=== PATIENT | male | born 1970 | race Caucasian/White ===

== ENCOUNTER 2021-08-15 17:41 | Emergency (ER) | payer SELFPAY ==
[2021-08-15 17:46] VITALS: BP 190/106
[2021-08-15] MEDS ORDERED: ONDANSETRON 4 MG ODT TAB PO ONE (18:17)
[2021-08-15] MEDS ORDERED: HYDROmorphone 2 MG/1 ML INJ IM ONE (18:17)
--- NOTE | 2021-08-15 18:22 | Emergency Department Report ---
ED General Adult HPI - General Chief complaint: Pain General Stated complaint: PAIN DUE TO CANCER Time Seen by Provider: 08/15/21 18:13 Source: patient Mode of arrival: Ambulatory Limitations: No Limitations - History of Present Illness Initial comments: This very pleasant 50-year-old male with past medical history of terminal multiple myeloma who presents the emergency department chief complaint of acute pain. Patient reports he is from [facility] and is down here due to a of his grandmother and the legal proceedings took longer than expected and he did not bring enough of his pain medication. He normally takes hydrocodone 10/325 mg every 4 hours but is out of medication and having severe pain. He reports that is a side effect of one of the chemotherapy agents he has severe peripheral neuropathy and is having pain in the bilateral feet and legs as well his back and sides. His is with him at the bedside and states he has been given 3 months to live. Severity scale (0 -10): 10 - Related Data Previous Rx's Medication Instructions Recorded Last Taken Type HYDROcodone/APAP 10-325 [[place] 1 each PO Q4HR #24 tablet 08/15/21 Unknown Rx 10-325 mg TAB] Allergies Allergy/AdvReac Type Severity Reaction Status Date / Time ketorolac [From Toradol] Allergy Anaphylaxis Verified 08/15/21 17:47 ED Review of Systems ROS: Stated complaint: PAIN DUE TO CANCER Other details as noted in HPI Comment: All other systems reviewed and negative Constitutional: denies: chills, fever Eyes: denies: eye pain, eye discharge, vision change ENT: denies: ear pain, throat pain Respiratory: denies: cough, shortness of breath, wheezing Cardiovascular: denies: chest pain, palpitations Endocrine: no symptoms reported Gastrointestinal: denies: abdominal pain, nausea, diarrhea Genitourinary: denies: urgency, dysuria Musculoskeletal: as per HPI, back pain, arthralgia. denies: joint swelling Skin: denies: rash, lesions Neurological: denies: headache, weakness, paresthesias Psychiatric: denies: anxiety, depression Hematological/Lymphatic: denies: easy bleeding, easy bruising ED Past Medical Hx - Medications Home Medications: Home Medications Medication Instructions Recorded Confirmed Last Taken Type HYDROcodone/APAP 10-325 [[place] 1 each PO Q4HR #24 tablet 08/15/21 Unknown Rx 10-325 mg TAB] ED Physical Exam - General Limitations: No Limitations General appearance: alert, in no apparent distress - Head Head exam: Present: atraumatic, normocephalic - Eye Eye exam: Present: normal appearance, PERRL, EOMI Pupils: Present: normal accommodation - ENT ENT exam: Present: normal exam, normal orophraynx, mucous membranes moist - Neck Neck exam: Present: normal inspection, full ROM. Absent: tenderness, meningismus - Respiratory Respiratory exam: Present: normal lung sounds bilaterally. Absent: respiratory distress, wheezes, rales, rhonchi, stridor - Cardiovascular Cardiovascular Exam: Present: regular rate, normal rhythm, normal heart sounds. Absent: systolic murmur, diastolic murmur, rubs, gallop - GI/Abdominal GI/Abdominal exam: Present: soft, normal bowel sounds. Absent: distended, guarding, rebound, rigid - Rectal Rectal exam: Present: deferred - Extremities Exam Extremities exam: Present: normal inspection - Back Exam Back exam: Present: normal inspection - Neurological Exam Neurological exam: Present: alert, oriented X3 - Psychiatric Psychiatric exam: Present: normal affect, normal mood - Skin Skin exam: Present: warm, dry, intact, normal color. Absent: rash ED Course Vital Signs 08/15/21 17:45 Temperature 98.1 F Pulse Rate 105 H Respiratory 18 Rate Blood Pressure 190/106 [Right] O2 Sat by Pulse 100 Oximetry ED Medical Decision Making - Medical Decision Making Patient nontoxic no acute distress. Vital signs relatively stable other than a slightly elevated heart rate. Patient does appear to be in acute pain. I will give him an injection of IM pain medication and oral nausea medication and discharge him with his hydrocodone. I did discuss with the attending physician who was agreeable this plan. Patient was agreeable this plan. I did offer a work-up including labs and possibly imaging however the patient and politely declined stating that they would prefer just some pain relief and follow-up with her doctor back in [place]. - Differential Diagnosis Cancer pain, fracture, bone infarction Critical care attestation.: If time is entered above; I have spent that time in minutes in the direct care of this critically ill patient, excluding procedure time. ED Disposition Clinical Impression: Cancer associated pain Disposition: HOME / SELF CARE / HOMELESS Is pt being admited?: No Condition: Stable Instructions: Acute Pain, Adult Prescriptions: HYDROcodone/APAP 10-325 [[place] 10-325 mg TAB] 1 each PO Q4HR #24 tablet Referrals: PRIMARY CARE, [Referring] - 3-5 Days Time of Disposition: 18:21
== END 2021-08-15 18:40 | disposition home or self-care (01) ==
LOC: ED 17:41
DX: G89.3 Neoplasm related pain (acute) (chronic) (principal); Z88.5 Allergy status to narcotic agent; Z79.899 Other long term (current) drug therapy
CPT/HCPCS: 96372; 99282; J1170; J3490; Q0162

== ENCOUNTER 2021-09-04 17:04 | Emergency (ER) | payer SELFPAY ==
[2021-09-04 17:13] VITALS: BP 156/105
[2021-09-04] MEDS ORDERED: HYDROcodone/ACETAMINOPHEN 10-325MG TAB PO ONE (17:48)
[2021-09-04 18:22] LABS: Basophils # (Auto) 0.1 K/mm3 (0.0-0.1); Basophils % (Auto) 0.7 % (0.0-1.8); Eosinophils # (Auto) 0.1 K/mm3 (0.0-0.4); Eosinophils % (Auto) 1.2 % (0.0-4.3); Hematocrit 45.9 % (35.5-45.6); Hemoglobin 14.9 gm/dl (11.8-15.2); Lymphocytes # (Auto) 2.7 K/mm3 (1.2-5.4); Lymphocytes % (Auto) 25.7 % (13.4-35.0); Mean Corpuscular HGB Conc 33 % (32-34); Mean Corpuscular Volume 85 fl (84-94); Monocytes # (Auto) 0.6 K/mm3 (0.0-0.8); Monocytes % (Auto) 5.4 % (0.0-7.3); Platelet Count 303 K/mm3 (140-440); Red Blood Count 5.43 M/mm3 (3.65-5.03); Red Cell Distribution Width 14.2 % (13.2-15.2)
[2021-09-04 18:37] LABS: Alanine Aminotransferase 36 units/L (7-56); Albumin 4.2 g/dL (3.9-5); Blood Urea Nitrogen 9 mg/dL (9-20); Calcium 9.6 mg/dL (8.4-10.2); Hemolysis Index 13
[2021-09-04 18:38] LABS: BUN/Creatinine Ratio 15
--- NOTE | 2021-09-04 18:45 | Emergency Department Report ---
ED General Adult HPI - General Chief complaint: Pain General Stated complaint: PAIN FROM TERMINAL CA/MED REFILL Time Seen by Provider: 09/04/21 17:38 Source: patient Mode of arrival: Ambulatory Limitations: No Limitations - History of Present Illness Initial comments: Patient is a 50-year-old male presents emergency room due to chronic pain from his terminal cancer. Patient's states that he has multiple myeloma and he was given 2 months to live. states that they traveled here for a . states that she then got injured and had to be sent to [facility] for a surgical procedure and that is why they have not returned yet. She states that they are planning to go back to their home town on 09/07/21. She reports he is out of his glipizide 10 mg, Caro 10 2 tablets every 4 hours, Soma 350 twice daily. He states that he does has pain all over. He denies any fever, vomiting, diarrhea, cough, chest pain, shortness of breath. Allergy to Toradol. Severity scale (0 -10): 10 - Related Data Previous Rx's Medication Instructions Recorded Last Taken Type Carisoprodol [Soma] 350 mg PO BID #8 tablet 09/04/21 Unknown Rx HYDROcodone/APAP 10-325 [[place] 1 each PO Q4HR #24 tablet 09/04/21 Unknown Rx 10-325 mg TAB] glipiZIDE [Glucotrol] 10 mg PO DAILY #30 tab 09/04/21 Unknown Rx Allergies Allergy/AdvReac Type Severity Reaction Status Date / Time ketorolac [From Toradol] Allergy Anaphylaxis Verified 08/15/21 17:47 ED Review of Systems ROS: Stated complaint: PAIN FROM TERMINAL CA/MED REFILL Other details as noted in HPI Comment: All other systems reviewed and negative ED Past Medical Hx - Past Medical History Hx Hypertension: Yes Hx Diabetes: Yes Hx of Cancer: Yes (multiple myeloma bone ca) - Medications Home Medications: Home Medications Medication Instructions Recorded Confirmed Last Taken Type Carisoprodol [Soma] 350 mg PO BID #8 tablet 09/04/21 Unknown Rx HYDROcodone/APAP 10-325 [[place] 1 each PO Q4HR #24 tablet 09/04/21 Unknown Rx 10-325 mg TAB] glipiZIDE [Glucotrol] 10 mg PO DAILY #30 tab 09/04/21 Unknown Rx ED Physical Exam - General Limitations: No Limitations General appearance: alert, in no apparent distress - Head Head exam: Present: atraumatic, normocephalic - Eye Eye exam: Present: normal appearance - ENT ENT exam: Present: mucous membranes moist - Respiratory Respiratory exam: Present: normal lung sounds bilaterally. Absent: respiratory distress, wheezes, rales, rhonchi, stridor, chest wall tenderness, accessory muscle use, decreased breath sounds, prolonged expiratory - Cardiovascular Cardiovascular Exam: Present: regular rate, normal rhythm, normal heart sounds. Absent: systolic murmur, diastolic murmur, rubs, gallop - Neurological Exam Neurological exam: Present: alert, oriented X3 - Psychiatric Psychiatric exam: Present: normal affect, normal mood - Skin Skin exam: Present: warm, dry, intact ED Course Vital Signs 09/04/21 09/04/21 09/04/21 17:07 18:30 19:32 Temperature 98.7 F Pulse Rate 95 H 92 H Respiratory 16 15 20 Rate Blood Pressure 156/105 O2 Sat by Pulse 97 97 Oximetry ED Medical Decision Making - Lab Data Result diagrams: 09/04/21 17:54 09/04/21 17:54 Lab Results 09/04/21 09/04/21 Range/Units 17:54 17:54 WBC 10.4 (4.5-11.0) K/mm3 RBC 5.43 H (3.65-5.03) M/mm3 Hgb 14.9 (11.8-15.2) gm/dl Hct 45.9 H (35.5-45.6) % MCV 85 (84-94) fl MCH 28 (28-32) pg MCHC 33 (32-34) % RDW 14.2 (13.2-15.2) % Plt Count 303 (140-440) K/mm3 Lymph % (Auto) 25.7 (13.4-35.0) % [place] % (Auto) 5.4 (0.0-7.3) % Eos % (Auto) 1.2 (0.0-4.3) % Baso % (Auto) 0.7 (0.0-1.8) % Lymph # (Auto) 2.7 (1.2-5.4) K/mm3 [place] # (Auto) 0.6 (0.0-0.8) K/mm3 Eos # (Auto) 0.1 (0.0-0.4) K/mm3 Baso # (Auto) 0.1 (0.0-0.1) K/mm3 Seg Neutrophils % 67.0 (40.0-70.0) % Seg Neutrophils # 7.0 (1.8-7.7) K/mm3 Sodium 138 (137-145) mmol/L Potassium 3.8 (3.6-5.0) mmol/L Chloride 99.1 (98-107) mmol/L Carbon Dioxide 21 L (22-30) mmol/L Anion Gap 22 mmol/L BUN 9 (9-20) mg/dL Creatinine 0.6 L (0.8-1.3) mg/dL Estimated GFR > 60 ml/min BUN/Creatinine Ratio 15 % Glucose 300 H (75-100) mg/dL Calcium 9.6 (8.4-10.2) mg/dL Total Bilirubin 0.30 (0.1-1.2) mg/dL AST 24 (5-40) units/L ALT 36 (7-56) units/L Alkaline Phosphatase 73 (35-129) units/L Total Protein 7.0 (6.3-8.2) g/dL Albumin 4.2 (3.9-5) g/dL Albumin/Globulin Ratio 1.5 % - Medical Decision Making Patient is a 50-year-old male presents emergency room due to chronic pain from h is terminal cancer. Patient's states that he has multiple myeloma and he was given 2 months to live. states that they traveled here for a . states that she then got injured and had to be sent to [facility] for a surgical procedure and that is why they have not returned yet. She states that they are planning to go back to their home town on 09/07/21. She reports he is out of his glipizide 10 mg, Caro 10 2 tablets every 4 hours, Soma 350 twice daily. He states that he does has pain all over. He denies any fever, vomiting, diarrhea, cough, chest pain, shortness of breath. Allergy to Toradol. vss. Labs with blood glucose of 300, patient has been out of his glipizide, otherwise labs are stable. Patient given prescription for his home medications. Advised patient and pts Please follow-up with your primary care doctor. Return to emergency room for any new or worsening symptoms. Critical care attestation.: If time is entered above; I have spent that time in minutes in the direct care of this critically ill patient, excluding procedure time. ED Disposition Clinical Impression: Cancer related pain, Medication refill Disposition: 01 HOME / SELF CARE / HOMELESS Is pt being admited?: No Does the pt Need Aspirin: No Condition: Stable Instructions: Chronic Pain, Adult Additional Instructions: Please follow-up with your primary care doctor. Return to emergency room for any new or worsening symptoms. Prescriptions: glipiZIDE [Glucotrol] 10 mg PO DAILY #30 tab HYDROcodone/APAP 10-325 [[place] 10-325 mg TAB] 1 each PO Q4HR #24 tablet Carisoprodol [Soma] 350 mg PO BID #8 tablet Referrals: PRIMARY CARE, [Primary Care Provider] - 3-5 Days Time of Disposition: 18:43 Print Language: HUNGARIAN
== END 2021-09-04 19:32 | disposition home or self-care (01) ==
LOC: ED 17:04
DX: G89.3 Neoplasm related pain (acute) (chronic) (principal); C90.00 Multiple myeloma not having achieved remission; I10 Essential (primary) hypertension; E11.9 Type 2 diabetes mellitus without complications
CPT/HCPCS: 36415; 80053; 85025; 99283

== ENCOUNTER 2021-09-14 13:53 | Emergency (ER) | payer SELFPAY ==
[2021-09-14 14:10] VITALS: BP 147/92
[2021-09-14] MEDS ORDERED: CARISOPRODOL 350 MG TAB PO NR (14:54)
[2021-09-14] MEDS ORDERED: HYDROcodone/ACETAMINOPHEN 10-325MG TAB PO ONE (14:54)
--- NOTE | 2021-09-14 14:58 | Emergency Department Report ---
ED General Adult HPI - General Chief complaint: Pain General Stated complaint: TERMINAL CA Time Seen by Provider: 09/14/21 14:53 Source: patient Mode of arrival: Ambulatory Limitations: No Limitations - History of Present Illness Initial comments: 51-year-old male presents to the ER requesting a refill on his pain medication. Patient has a chronic pain secondary to his history of multiple myeloma. According to his patient is terminally ill, and was told he has 2 months to live. He is currently on [place] tens as well as Soma 350 twice a day for his chronic pain. and patient report that patient took his last pill yesterday. states that they actually visiting from [place], but they have been stuck here for the past couple weeks because got injured, and had to have surgical procedure done at [facility] which apparently delayed the return. Patient was seen here on September 04 for similar and at the time told the provider that there was was to return on September 07, but now is stating that he not scheduled to return until next to [place]. reported that patient was told at his last ER visit here that he will come here for refills on his pain medications. Other than pain patient reports no additional symptoms at this time. MD Complaint: Chronic pain; requesting refill on pain medication -: month(s) - Related Data Previous Rx's Medication Instructions Recorded Last Taken Type Carisoprodol [Soma] 350 mg PO BID #8 tablet 09/04/21 Unknown Rx HYDROcodone/APAP 10-325 [[place] 1 each PO Q4HR #24 tablet 09/04/21 Unknown Rx 10-325 mg TAB] glipiZIDE [Glucotrol] 10 mg PO DAILY #30 tab 09/04/21 Unknown Rx Baclofen 20 mg PO QID #40 tablet 09/14/21 Unknown Rx traMADoL [Ultram] 50 mg PO Q4HR PRN #15 tablet 09/14/21 Unknown Rx Allergies Allergy/AdvReac Type Severity Reaction Status Date / Time ketorolac [From Toradol] Allergy Anaphylaxis Verified 09/14/21 14:55 ED Review of Systems ROS: Stated complaint: TERMINAL CA Other details as noted in HPI Comment: All other systems reviewed and negative Constitutional: denies: chills, fever Eyes: denies: eye pain, eye discharge, vision change ENT: denies: ear pain, throat pain, dental pain, hearing loss, congestion Respiratory: denies: cough, shortness of breath, SOB with exertion, SOB at rest, wheezing Cardiovascular: denies: chest pain, palpitations, dyspnea on exertion, edema, syncope, paroxysmal nocturnal dyspnea Gastrointestinal: denies: abdominal pain, nausea, vomiting, diarrhea, constipation, hematemesis, hematochezia Genitourinary: denies: urgency, dysuria, frequency, hematuria, discharge, testicular pain, testicular mass Musculoskeletal: arthralgia, myalgia Skin: denies: rash, lesions, change in color, change in hair/nails, pruritus Neurological: denies: headache, weakness, numbness, paresthesias, confusion, abnormal gait, vertigo Psychiatric: denies: anxiety, depression, auditory hallucinations, visual hallucinations, homicidal thoughts, suicidal thoughts Hematological/Lymphatic: denies: easy bleeding, easy bruising, swollen glands ED Past Medical Hx - Past Medical History Hx Hypertension: Yes Hx Diabetes: Yes - Medications Home Medications: Home Medications Medication Instructions Recorded Confirmed Last Taken Type Carisoprodol [Soma] 350 mg PO BID #8 tablet 09/04/21 Unknown Rx HYDROcodone/APAP 10-325 [[place] 1 each PO Q4HR #24 tablet 09/04/21 Unknown Rx 10-325 mg TAB] glipiZIDE [Glucotrol] 10 mg PO DAILY #30 tab 09/04/21 Unknown Rx Baclofen 20 mg PO QID #40 tablet 09/14/21 Unknown Rx traMADoL [Ultram] 50 mg PO Q4HR PRN #15 tablet 09/14/21 Unknown Rx ED Physical Exam - General Limitations: No Limitations General appearance: alert, in no apparent distress - Head Head exam: Present: atraumatic, normocephalic, normal inspection - Eye Eye exam: Present: normal appearance, PERRL, EOMI Pupils: Present: normal accommodation - Neck Neck exam: Present: normal inspection, full ROM. Absent: meningismus - Respiratory Respiratory exam: Absent: respiratory distress - Cardiovascular Cardiovascular Exam: Present: regular rate - Neurological Exam Neurological exam: Present: alert, oriented X3, CN II-XII intact, normal gait - Psychiatric Psychiatric exam: Present: normal affect, normal mood - Skin Skin exam: Present: intact ED Course Vital Signs 09/14/21 14:06 Temperature 98.6 F Pulse Rate 95 H Respiratory 16 Rate Blood Pressure 147/92 O2 Sat by Pulse 97 Oximetry ED Medical Decision Making - Medical Decision Making 51-year-old male presents to the ER requesting a refill on his pain medication. Patient has a chronic pain secondary to his history of multiple myeloma. According to his patient is terminally ill, and was told he has 2 months to live. He is currently on [place] 10 as well as Soma 350 twice a day for his chronic pain. and patient report that patient took his last pill yesterday. states that they actually visiting from [place], but they have been stuck here for the past couple weeks because got injured, and had to have surgical procedure done at [facility] which apparently delayed the return. Patient was seen here on September 04 for similar and at the time told the provider that there was was to return on September 07, but now is stating that he not scheduled to return until next to [place]. reported that patient was told at his last ER visit here that he will come here for refills on his pain medications. Other than pain patient reports no additional symptoms at this time. Patient is not toxic or significantly ill-appearing. Patient appears well- hydrated. He is not in any respiratory distress or significant pain distress. Reviewed patient on [employer] aware, patient has received multiple Soma and hydrocodone prescriptions since August 15, 2021. Somewhere prescribed from here as well as other providers. Most recent was a prescription for Percocet and Soma which was prescribed on September 12. Explained to patient and , that I understand his situation and it is unfortunate but unfortunately the ER cannot continue to provide narcotics for patient chronic pain. He will need to establish with a primary care doctor locally until he can return to [place] to see his PCP or his oncologist. I did offer to give him a dose of his medications here, and alternative medication for pain control. He will be given referral to local PCPs here homemaking contact until he can return to [place]. Patient was stable at time of discharge. Critical care attestation.: If time is entered above; I have spent that time in minutes in the direct care of this critically ill patient, excluding procedure time. ED Disposition Clinical Impression: Cancer related pain Disposition: HOME / SELF CARE / HOMELESS Is pt being admited?: No Does the pt Need Aspirin: No Condition: Stable Instructions: Chronic Pain, Adult Additional Instructions: You will be given referral to local primary care doctor for continued management of your chronic pain until you are able to return home to [place] next week . We can give you alternative medication (Ultram, Baclofen) to help control your pain until he can follow-up with your PCP. Or your oncologist. Return to the ER if symptoms changes or worsens in any way. Prescriptions: Baclofen 20 mg PO QID #40 tablet traMADoL [Ultram] 50 mg PO Q4HR PRN #15 tablet PRN Reason: Pain Referrals: FELA HOLLINS MD [Staff Physician] - 3-5 Days KEELY SNIDER MD [Staff Physician] - 3-5 Days RENETTA AGUILA MD [Staff Physician] - 3-5 Days Time of Disposition: 14:58
== END 2021-09-14 16:20 | disposition home or self-care (01) ==
LOC: ED 13:53
DX: G89.3 Neoplasm related pain (acute) (chronic) (principal); I10 Essential (primary) hypertension; E11.9 Type 2 diabetes mellitus without complications; Z88.5 Allergy status to narcotic agent
CPT/HCPCS: 99282